=== PATIENT | female | born 1950 | race Caucasian/White ===

== ENCOUNTER 2017-05-07 13:38 | Outpatient (CLI) | payer MEDICARE, OTHER | END 2017-05-07 17:00 | disposition home or self-care (01) | LOC: HPC 13:38 | DX: K44.9 Diaphragmatic hernia without obstruction or gangrene (principal); F41.9 Anxiety disorder, unspecified; G47.30 Sleep apnea, unspecified; K21.9 Gastro-esophageal reflux disease without esophagitis; F32.9 Major depressive disorder, single episode, unspecified; G40.109 Localization-related (focal) (partial) symptomatic epilepsy and epileptic syndromes with simple partial seizures, not intractable, without status epilepticus; Z72.0 Tobacco use; Z88.0 Allergy status to penicillin; Z90.710 Acquired absence of both cervix and uterus; Z59.0 Homelessness | CPT/HCPCS: G0463 ==

== ENCOUNTER 2017-06-12 06:04 | Inpatient (IN) | payer MEDICARE, OTHER ==
[2017-06-12] MEDS: D5W-0.45 NACL + KCL 20 MEQ 1,000 ML IV ×3 (06:00→22:27)
[2017-06-12] MEDS ORDERED: FAMOTIDINE 20 MG INJ (07:38)
[2017-06-12] MEDS ORDERED: PROVENTIL HFA 6.7GM INHALER (07:40)
[2017-06-12] MEDS ORDERED: MIDAZOLAM 1 MG/ML 2 ML INJ (07:52)
[2017-06-12] MEDS ORDERED: CIPROFLOXACIN 400MG/D5W 200 ML (08:35)
[2017-06-12] MEDS ORDERED: SUCCINYLCHOLINE CHLORIDE 100 MG/5 ML SYG IV (08:44)
[2017-06-12] MEDS ORDERED: LIDOCAINE 2% (SDV) 5 ML INJ (08:44)
[2017-06-12] MEDS ORDERED: PROPOFOL 20 ML (08:44)
[2017-06-12] MEDS ORDERED: ROCURONIUM 50 MG INJ ×2 (08:44)
[2017-06-12] MEDS ORDERED: ONDANSETRON 4 MG INJ (10:28)
[2017-06-12] MEDS ORDERED: DEXAMETHASONE 4 MG/ML 1 ML INJ (10:28)
[2017-06-12] MEDS ORDERED: SUGAMMADEX SODIUM 200 MG/2 ML VIAL IV (11:29)
[2017-06-12] MEDS: BUPIVACAINE 0.5%/EPI (SDV) 30 ML INJ (11:46)
[2017-06-12] MEDS ORDERED: hydrALAzine 20 MG INJ IV (12:00)
[2017-06-12] MEDS ORDERED: FENTAnyl 50 MCG/ML VIAL IV (12:00)
[2017-06-12] MEDS ORDERED: PROCHLORPERAZINE 10 MG INJ IV (12:00)
[2017-06-12] MEDS ORDERED: ONDANSETRON 4 MG INJ IV (12:00)
[2017-06-12] MEDS ORDERED: DIPHENHYDRAMINE 50 MG INJ IV (12:00)
[2017-06-12] MEDS: MEPERIDINE 25 MG INJ IV (12:20)
[2017-06-12] MEDS: HYDROmorphONE (0.2 MG/ML) 10ML SYG IV (12:21)
[2017-06-12] MEDS ORDERED: HYDROCODONE/APAP (5/325) TAB PO (12:30)
[2017-06-12] MEDS ORDERED: NA PHOSPHATE/BIPHOS 133 ML ENEMA PR (12:30)
[2017-06-12] MEDS ORDERED: DOCUSATE SODIUM 100 MG CAP PO (12:30)
[2017-06-12 14:06] LABS: ADD MAN DIFF? NO
[2017-06-12 14:08] LABS: ABNORMAL IP MESSAGE 1; BASOPHILS % 0.3 % (0.0-2.0); HEMATOCRIT 37.6 % (37.0-47.0); HEMOGLOBIN 12.7 g/dl (12.0-16.0); LYMPHOCYTES # 0.5 10^3/ul (0.8-2.9); LYMPHOCYTES % 4.1 % (15.0-51.0); MEAN CORPUSCULAR HEMOGLOBIN 29.5 pg (29.0-33.0); MEAN CORPUSCULAR HGB CONC 33.8 g/dl (32.0-37.0); MEAN CORPUSCULAR VOLUME 87.4 fl (82.0-101.0); MEAN PLATELET VOLUME 9.5 fl (7.4-10.4); MONOCYTE # 0.3 10^3/ul (0.3-0.9); MONOCYTES % 2.9 % (0.0-11.0); NEUTROPHIL # 10.7 10^3/ul (1.6-7.5); NEUTROPHILS % 92.3 % (39.0-77.0); PLATELET COUNT 172 10^3/UL (140-415); RED CELL DISTRIBUTION WIDTH 13.2 % (11.5-14.5)
[2017-06-12 14:08] LABS: WHITE BLOOD COUNT 11.6 10^3/ul (4.8-10.8)
[2017-06-12 14:09] LABS: POSITIVE DIFF @See below
[2017-06-12] MEDS ORDERED: clonAZEPAM 0.5 MG TAB PO (14:30)
[2017-06-12] MEDS ORDERED: ALBUTEROL/IPRATROPIUM (NEB) 3 ML AMP HHN (14:30)
[2017-06-12 14:33] LABS: INR 0.93; PROTIME 12.6 Sec (11.9-14.9)
[2017-06-12 14:34] LABS: PARTIAL THROMBOPLASTIN TIME 26.3 Sec (25.0-35.0)
[2017-06-12 14:35] LABS: ALANINE AMINOTRANSFERASE 109 IU/L (13-69); ALBUMIN 3.6 g/dl (3.3-4.9); ALBUMIN/GLOBULIN RATIO 1.56; ALKALINE PHOSPHATASE 58 IU/L (42-121); ANION GAP 14 (8-16); ASPARTATE AMINO TRANSFERASE 136 IU/L (15-46); BILIRUBIN,INDIRECT 0.1 mg/dl (0-1.1); BILIRUBIN,TOTAL 0.1 mg/dl (0.2-1.3); CARBON DIOXIDE 24 mmol/L (21-31); CHLORIDE 107 mmol/L (97-110); GLUCOSE 118 mg/dl (70-220); TOTAL PROTEIN 5.9 g/dl (6.1-8.1)
[2017-06-12 14:36] LABS: MAGNESIUM 1.9 mg/dl (1.7-2.5)
[2017-06-12 14:36] LABS: PHOSPHORUS 3.3 mg/dl (2.5-4.9)
[2017-06-12 14:42] LABS: BLOOD UREA NITROGEN 9 mg/dl (7-20); CALCIUM 8.3 mg/dl (8.4-10.2); CREATININE 0.57 mg/dl (0.44-1.00); POTASSIUM 3.8 mmol/L (3.5-5.1); SODIUM 141 mmol/L (135-144)
[2017-06-12] MEDS: ALENDRONATE 70 MG XX (16:00)
[2017-06-12] MEDS: MIRTAZAPINE 15 MG TAB PO (20:20)
[2017-06-12] MEDS: HYDROmorphONE 0.5 MG/0.5 ML SYG IV (20:20)
[2017-06-12] MEDS: OLOPATADINE 0.1% 5 ML OPH BOTH EYES (21:00)
[2017-06-12] MEDS: ALENDRONATE 70 MG TAB PO (21:35)
[2017-06-13] MEDS: HYDROmorphONE 1 MG/ML SYG IV (03:16)
[2017-06-13] MEDS: D5W-0.45 NACL + KCL 20 MEQ 1,000 ML IV ×3 (05:45→18:56)
[2017-06-13 06:00] LABS: ADD MAN DIFF? NO
[2017-06-13 06:16] LABS: WHITE BLOOD COUNT 8.9 10^3/ul (4.8-10.8)
[2017-06-13 06:16] LABS: BASOPHILS % 0.2 % (0.0-2.0); HEMATOCRIT 36.5 % (37.0-47.0); HEMOGLOBIN 12.1 g/dl (12.0-16.0); LYMPHOCYTES # 1.1 10^3/ul (0.8-2.9); LYMPHOCYTES % 12.6 % (15.0-51.0); MEAN CORPUSCULAR HEMOGLOBIN 29.5 pg (29.0-33.0); MEAN CORPUSCULAR HGB CONC 33.2 g/dl (32.0-37.0); MEAN PLATELET VOLUME 10.2 fl (7.4-10.4); MONOCYTE # 0.9 10^3/ul (0.3-0.9); MONOCYTES % 9.9 % (0.0-11.0); NEUTROPHIL # 6.9 10^3/ul (1.6-7.5); PLATELET COUNT 197 10^3/UL (140-415); RED CELL DISTRIBUTION WIDTH 13.3 % (11.5-14.5)
[2017-06-13 06:17] LABS: INR 0.94; PROTIME 12.7 Sec (11.9-14.9)
[2017-06-13 06:18] LABS: PARTIAL THROMBOPLASTIN TIME 26.3 Sec (25.0-35.0)
[2017-06-13 06:51] LABS: B-TYPE NATRIURETIC PEPTIDE 829 PG/ML (0-125)
[2017-06-13 06:56] LABS: ALANINE AMINOTRANSFERASE 107 IU/L (13-69); ALBUMIN 3.4 g/dl (3.3-4.9); ALKALINE PHOSPHATASE 53 IU/L (42-121); ANION GAP 12 (8-16); ASPARTATE AMINO TRANSFERASE 101 IU/L (15-46); BILIRUBIN,INDIRECT 0.2 mg/dl (0-1.1); BILIRUBIN,TOTAL 0.2 mg/dl (0.2-1.3); BLOOD UREA NITROGEN 7 mg/dl (7-20); CALCIUM 8.6 mg/dl (8.4-10.2); CARBON DIOXIDE 27 mmol/L (21-31); CHLORIDE 106 mmol/L (97-110); CREATININE 0.64 mg/dl (0.44-1.00); GLUCOSE 117 mg/dl (70-220); MAGNESIUM 2.2 mg/dl (1.7-2.5); PHOSPHORUS 3.1 mg/dl (2.5-4.9); POTASSIUM 4.3 mmol/L (3.5-5.1); SODIUM 141 mmol/L (135-144)
[2017-06-13 07:06] LABS: LACTIC ACID 2.8 mmol/L (0.5-2.0)
[2017-06-13] MEDS: SOD CHLORIDE 0.9% 500 ML IV (07:57)
[2017-06-13] MEDS: ALENDRONATE 70 MG TAB PO (08:00)
[2017-06-13] MEDS: OLOPATADINE 0.1% 5 ML OPH BOTH EYES ×2 (09:00→20:52)
[2017-06-13] MEDS: FLUOXETINE 20 MG CAP PO (09:00)
[2017-06-13] MEDS ORDERED: NON-FORMULARY/PATIENT OWN MED (Fluticasone-Vilanterol (Breo Ellipta Inhaler) 1 PUFF) INHALATION (09:00)
[2017-06-13] MEDS: ASPIRIN (EC) 81 MG TAB PO (09:34)
[2017-06-13] MEDS: FAMOTIDINE 20 MG INJ IV (09:35)
[2017-06-13] MEDS: PANTOPRAZOLE (EC) 40 MG TAB PO (09:42)
[2017-06-13] MEDS: HYDROCODONE/APAP (5/325) TAB PO ×2 (09:43→17:53)
[2017-06-13] MEDS: ENOXAPARIN 40 MG/0.4 ML SYG SC (10:02)
[2017-06-13] MEDS: BISACODYL 10 MG SUPP PR (12:27)
[2017-06-13 12:56] LABS: LACTIC ACID 1.5 mmol/L (0.5-2.0)
[2017-06-13] MEDS: DIATR MEGLU/DIATRIZOATE SODIUM 120 ML BTL (14:27)
[2017-06-13] MEDS: MIRTAZAPINE 15 MG TAB PO (20:51)
[2017-06-13] MEDS: HYDROmorphONE 0.5 MG/0.5 ML SYG IV (20:52)
[2017-06-14] MEDS: HYDROCODONE/APAP (5/325) TAB PO ×2 (02:30→13:29)
[2017-06-14] MEDS: OLOPATADINE 0.1% 5 ML OPH BOTH EYES (09:00)
[2017-06-14] MEDS: ASPIRIN (EC) 81 MG TAB PO (09:20)
[2017-06-14] MEDS: FAMOTIDINE 20 MG INJ IV (09:20)
[2017-06-14] MEDS: PANTOPRAZOLE (EC) 40 MG TAB PO (09:20)
[2017-06-14] MEDS: ENOXAPARIN 40 MG/0.4 ML SYG SC (09:21)
[2017-06-14] MEDS: D5W-0.45 NACL + KCL 20 MEQ 1,000 ML IV (14:27)
== END 2017-06-14 16:50 | disposition home or self-care (01) | DRG 328 ==
LOC: REC 06:04 → MS2 17:15
PROC: 0DV44ZZ Restriction of Esophagogastric Junction, Percutaneous Endoscopic Approach (ICD-10-PCS; principal; 2017-06-12 07:30)
PROC: 0BQT4ZZ Repair Diaphragm, Percutaneous Endoscopic Approach (ICD-10-PCS; 2017-06-12 07:30)
PROC: 0FT44ZZ Resection of Gallbladder, Percutaneous Endoscopic Approach (ICD-10-PCS; 2017-06-12 07:30)
PROC: 0FB04ZX Excision of Liver, Percutaneous Endoscopic Approach, Diagnostic (ICD-10-PCS; 2017-06-12 07:30)
DX: K21.9 Gastro-esophageal reflux disease without esophagitis (principal); K80.70 Calculus of gallbladder and bile duct without cholecystitis without obstruction; K76.0 Fatty (change of) liver, not elsewhere classified; K44.9 Diaphragmatic hernia without obstruction or gangrene; Z72.0 Tobacco use
CPT/HCPCS: 74240; 80053; 83605; 83735; 83880; 84100; 85025; 85610; 85730; 86850; 86900; 86901; 87086; 88304; 88307; 88313

== ENCOUNTER 2017-06-20 09:21 | Emergency (ER) | payer MEDICARE, OTHER ==
[2017-06-20] MEDS: HYDROmorphONE 1 MG/ML SYG IM (10:55)
[2017-06-20] MEDS ORDERED: DIATR MEGLU/DIATRIZOATE SODIUM 30 ML SOLUTION PO (11:00)
[2017-06-20 11:27] LABS: ADD UMIC NO; UR ASCORBIC ACID NEGATIVE (NEGATIVE); UR BILIRUBIN (Dip) NEGATIVE (NEGATIVE); UR BLOOD (Dip) NEGATIVE (NEGATIVE); UR CLARITY CLEAR (CLEAR); UR COLOR YELLOW (YELLOW); UR GLUCOSE (Dip) NEGATIVE (NEGATIVE); UR KETONES (Dip) NEGATIVE (NEGATIVE); UR LEUKOCYTE ESTERASE (Dip) NEGATIVE Leu/ul (NEGATIVE); UR NITRITE (Dip) NEGATIVE (NEGATIVE); UR SPECIFIC GRAVITY (Dip) 1.009 (1.003-1.030); UR TOTAL PROTEIN (Dip) NEGATIVE (NEGATIVE); UR UROBILINOGEN (Dip) NEGATIVE (NEGATIVE)
[2017-06-20] MEDS: IOHEXOL 14.3 MG(I)/ML (ADULT) BTL PO (11:31)
[2017-06-20 15:28] LABS: ADD MAN DIFF? NO
[2017-06-20 15:31] LABS: WHITE BLOOD COUNT 5.8 10^3/ul (4.8-10.8)
[2017-06-20 15:31] LABS: BASOPHILS % 0.5 % (0.0-2.0); EOSINOPHILS # 0.1 10^3/ul (0.0-0.5); EOSINOPHILS % 1.4 % (0.0-7.0); HEMATOCRIT 39.4 % (37.0-47.0); LYMPHOCYTES # 1.6 10^3/ul (0.8-2.9); LYMPHOCYTES % 27.1 % (15.0-51.0); MEAN CORPUSCULAR HEMOGLOBIN 28.8 pg (29.0-33.0); MEAN CORPUSCULAR VOLUME 87.4 fl (82.0-101.0); MEAN PLATELET VOLUME 9.9 fl (7.4-10.4); MONOCYTE # 0.5 10^3/ul (0.3-0.9); MONOCYTES % 7.9 % (0.0-11.0); NEUTROPHIL # 3.6 10^3/ul (1.6-7.5); NEUTROPHILS % 62.2 % (39.0-77.0); PLATELET COUNT 240 10^3/UL (140-415); RED BLOOD COUNT 4.51 10^6/ul (4.20-5.40); RED CELL DISTRIBUTION WIDTH 13.2 % (11.5-14.5)
[2017-06-20 15:46] LABS: PARTIAL THROMBOPLASTIN TIME 27.7 Sec (25.0-35.0); PROTIME 12.2 Sec (11.9-14.9)
[2017-06-20 15:50] LABS: ALANINE AMINOTRANSFERASE 44 IU/L (13-69); ALBUMIN 4.3 g/dl (3.3-4.9); ALBUMIN/GLOBULIN RATIO 1.53; ALKALINE PHOSPHATASE 75 IU/L (42-121); ANION GAP 13 (8-16); ASPARTATE AMINO TRANSFERASE 23 IU/L (15-46); BILIRUBIN,INDIRECT 0.2 mg/dl (0-1.1); BILIRUBIN,TOTAL 0.2 mg/dl (0.2-1.3); BLOOD UREA NITROGEN 9 mg/dl (7-20); CALCIUM 9.2 mg/dl (8.4-10.2); CARBON DIOXIDE 26 mmol/L (21-31); CHLORIDE 103 mmol/L (97-110); CREATININE 0.69 mg/dl (0.44-1.00); GLUCOSE 100 mg/dl (70-220); POTASSIUM 4.4 mmol/L (3.5-5.1); SODIUM 138 mmol/L (135-144); TOTAL PROTEIN 7.1 g/dl (6.1-8.1)
== END 2017-06-20 16:40 | disposition home or self-care (01) ==
LOC: FTE 09:21 → E/R 16:40
DX: G89.28 Other chronic postprocedural pain (principal); R10.12 Left upper quadrant pain; I10 Essential (primary) hypertension; J44.9 Chronic obstructive pulmonary disease, unspecified; F17.210 Nicotine dependence, cigarettes, uncomplicated; Z79.82 Long term (current) use of aspirin
CPT/HCPCS: 74176; 80053; 81003; 85025; 85610; 85730; 96372; 99285-25

== ENCOUNTER 2017-07-02 10:20 | Outpatient (CLI) | payer MEDICARE, OTHER | END 2017-07-02 15:51 | disposition home or self-care (01) | LOC: HPC 10:20 | DX: K44.9 Diaphragmatic hernia without obstruction or gangrene (principal); K80.20 Calculus of gallbladder without cholecystitis without obstruction; K21.9 Gastro-esophageal reflux disease without esophagitis; K57.90 Diverticulosis of intestine, part unspecified, without perforation or abscess without bleeding | CPT/HCPCS: G0463 ==

== ENCOUNTER 2017-07-21 00:26 | Emergency (ER) | payer MEDICARE, OTHER ==
[2017-07-21 03:37] LABS: ADD MAN DIFF? NO
[2017-07-21] MEDS: morphine 4 MG/ML VIAL IV (03:47)
[2017-07-21] MEDS: ONDANSETRON 4 MG INJ IV (03:47)
[2017-07-21] MEDS: SOD CHLORIDE 0.9% 500 ML IV (03:47)
[2017-07-21 03:57] LABS: ADD UMIC YES; UR ASCORBIC ACID NEGATIVE (NEGATIVE); UR BACTERIA FEW /HPF (NONE SEEN); UR BILIRUBIN (Dip) NEGATIVE (NEGATIVE); UR BLOOD (Dip) NEGATIVE (NEGATIVE); UR CLARITY CLEAR (CLEAR); UR COLOR YELLOW (YELLOW); UR GLUCOSE (Dip) NEGATIVE (NEGATIVE); UR KETONES (Dip) NEGATIVE (NEGATIVE); UR LEUKOCYTE ESTERASE (Dip) 1+ Leu/ul (NEGATIVE); UR NITRITE (Dip) NEGATIVE (NEGATIVE); UR RBC 0 /HPF (0-5); UR SPECIFIC GRAVITY (Dip) 1.015 (1.003-1.030); UR TOTAL PROTEIN (Dip) NEGATIVE (NEGATIVE); UR UROBILINOGEN (Dip) NEGATIVE (NEGATIVE); UR WBC 2 /HPF (0-5)
[2017-07-21 03:58] LABS: WHITE BLOOD COUNT 5.2 10^3/ul (4.8-10.8)
[2017-07-21 03:58] LABS: BASOPHILS % 0.8 % (0.0-2.0); EOSINOPHILS # 0.1 10^3/ul (0.0-0.5); EOSINOPHILS % 2.1 % (0.0-7.0); HEMATOCRIT 41.1 % (37.0-47.0); HEMOGLOBIN 13.5 g/dl (12.0-16.0); INR 0.94; LYMPHOCYTES # 1.7 10^3/ul (0.8-2.9); LYMPHOCYTES % 32.6 % (15.0-51.0); MEAN CORPUSCULAR HEMOGLOBIN 28.8 pg (29.0-33.0); MEAN CORPUSCULAR HGB CONC 32.8 g/dl (32.0-37.0); MEAN CORPUSCULAR VOLUME 87.6 fl (82.0-101.0); MEAN PLATELET VOLUME 10.4 fl (7.4-10.4); MONOCYTE # 0.4 10^3/ul (0.3-0.9); MONOCYTES % 8.2 % (0.0-11.0); NEUTROPHIL # 2.9 10^3/ul (1.6-7.5); NEUTROPHILS % 56.1 % (39.0-77.0); PLATELET COUNT 195 10^3/UL (140-415); PROTIME 12.7 Sec (11.9-14.9); RED BLOOD COUNT 4.69 10^6/ul (4.20-5.40); RED CELL DISTRIBUTION WIDTH 13.2 % (11.5-14.5)
[2017-07-21 03:59] LABS: PARTIAL THROMBOPLASTIN TIME 27.6 Sec (25.0-35.0)
[2017-07-21 04:04] LABS: ALANINE AMINOTRANSFERASE 23 IU/L (13-69); ALBUMIN 4.2 g/dl (3.3-4.9); ALBUMIN/GLOBULIN RATIO 1.61; ALKALINE PHOSPHATASE 60 IU/L (42-121); ANION GAP 17 (8-16); ASPARTATE AMINO TRANSFERASE 20 IU/L (15-46); BILIRUBIN,INDIRECT 0.1 mg/dl (0-1.1); BILIRUBIN,TOTAL 0.1 mg/dl (0.2-1.3); BLOOD UREA NITROGEN 9 mg/dl (7-20); CALCIUM 9.4 mg/dl (8.4-10.2); CARBON DIOXIDE 24 mmol/L (21-31); CHLORIDE 110 mmol/L (97-110); CREATININE 0.77 mg/dl (0.44-1.00); GLUCOSE 112 mg/dl (70-220); LIPASE 106 U/L (23-300); POTASSIUM 3.8 mmol/L (3.5-5.1); SODIUM 147 mmol/L (135-144); TOTAL PROTEIN 6.8 g/dl (6.1-8.1)
== END 2017-07-21 06:29 | disposition home or self-care (01) ==
LOC: E/R 00:26
DX: R10.84 Generalized abdominal pain (principal); R11.0 Nausea; F17.210 Nicotine dependence, cigarettes, uncomplicated
CPT/HCPCS: 36415; 74176; 80053; 81001; 83690; 85025; 85610; 85730; 96374; 96375; 99285-25